=== PATIENT | male | born 1935 | race Two or more races ===

== ENCOUNTER 2024-06-21 13:40 | Outpatient (OUT) | payer OTHER, SELFPAY ==
--- NOTE | 2024-06-21 14:00 | CA_ITS ---
Patient Name: KEVIN REYNOLDS MR#: [id number] : 1935 Exam Date: 06/21/2024 Ordering Doctor: DR. JOSIANE ORDAZ ECHOCARDIOGRAM REPORT PROCEDURE: CA ECHO DOPPLER COMPLETE INDICATIONS: Coronary artery disease, hypertension, asbestos exposure COMPARISON: None. DESCRIPTION: COMPLETE ECHOCARDIOGRAM Real-time transthoracic echocardiography with 2D, M-mode, spectral and color flow Doppler performed. QUALITY: Technical quality was good. LEFT VENTRICLE: Normal chamber size. Normal left ventricular wall thickness. Normal systolic function. LV EF: Normal left ventricular ejection fraction, (60%). DIASTOLIC: Diastolic function is indeterminate. ATRIAL SEPTUM: Visually appears intact. LEFT ATRIUM: Mild dilatation. RIGHT ATRIUM: Normal chamber size. RIGHT VENTRICLE: Normal chamber size. Normal systolic function. TRICUSPID VALVE: Normal mobility and thickness. No stenosis with trivial regurgitation. Doppler studies reveal mildly (35-45) elevated right sided pressures. RVSP 42 mmHg MITRAL VALVE: Normal mobility and thickness. No evidence of mitral valve stenosis. Mild mitral annular calcification. No mitral regurgitation. AORTIC VALVE: Normal trileaflet appearance. Mildly calcified aortic valve. Normal leaflet mobility. No evidence of aortic valve stenosis. No aortic regurgitation. AORTIC ROOT: Normal diameter and appearance. PULMONIC VALVE: Normal thickness and mobility. No stenosis. Trivial regurgitation. PERICARDIUM: No evidence of pericardial effusion. IVC: Collapses with inspirations. PLEURA: CONCLUSION: 1. Normal left ventricular size and systolic function. Estimated LVEF is 60%. 2. Normal right ventricular size and systolic function. 3. No significant valvular dysfunction. 4. Mildly elevated right-sided pressures. RVSP is 42 mmHg. 5. No pericardial effusion. Adult Echocardiography Procedure Report Left Ventricle LVEDD (3.7 - 5.6 cm): 3.46 cm LVESD (2.2 - 4.0 cm): 2.47 cm LVIVS thickness (0.6 - 1.2 cm): 1.08 cm LVPW thickness (0.5 - 1.0 cm): 1.04 cm e': 0.10 m/s E - e': 6.14 LVOT Max Gradient: 2.18 mm[Hg] LVOT Area (cm2): 0.74 m/s Peak Velocity (LVOT): 0.74 m/s Mean Velocity (LVOT): 0.46 m/s LVOT Diameter 2.10 cm Left Atrium LA Volume Index (2D A2C): 43.35 ml/m2 Left Atrium Systolic Dimension: 3.50 cm Mitral Valve MV E to A Ratio: 0.68 Mitral Valve A-Wave Peak Velocity: 0.94 m/s Mitral Valve E-Wave Peak Velocity: 0.64 m/s Right Ventricle Aorta AO Root Diam: 3.59 cm Aortic Valve AoV Area (Peak Adam): 1.98 cm2, 1.98 cm2 AoV Area (VTI): 2.23 cm2, 2.23 cm2 Peak Velocity(Antegrade Flow): 1.29 m/s Peak Gradient(Antegrade Flow): 6.64 mm[Hg] Mean Velocity(Antegrade Flow): 0.88 m/s Mean Gradient(Antegrade Flow): 3.48 mm[Hg] Velocity Time Integral: 28.01 cm Tricuspid Valve Peak Velocity (Regurgitant Flow): 2.76 m/s, 2.91 m/s, 2.83 m/s, 3.14 m/s Pulmonic Valve Mean Gradient: 2.47 mm[Hg] Mean Velocity: 0.74 m/s Peak Velocity: 1.05 m/s, 1.04 m/s Peak Gradient: 4.33 mm[Hg], 4.44 mm[Hg] Right Atrium Right Atrium Systolic Pressure: 45.81 ml, 45.81 ml Dictated by: Wolfgang Armstrong M.D. on 06/21/2024 at 19:00 Approved by: Wolfgang Armstrong M.D. on 06/21/2024 at 19:02
== END 2024-06-21 13:41 | disposition home or self-care (01) ==
LOC: CARD 13:45
PROVIDERS: PCP Family Medicine; Visit Provider Chiropractor
DX: I25.10 Atherosclerotic heart disease of native coronary artery without angina pectoris (principal)
CPT/HCPCS: 93306